=== PATIENT | female | born 1955 | race African-American/Black ===

== ENCOUNTER 2020-01-03 12:57 | Emergency (ER) | payer MEDICAID ==
[~2020-01-03] VITALS: Ht 160 cm; Wt 51.0 kg
[2020-01-03] MEDS ORDERED: QUET200T PO (13:32)
[2020-01-03] MEDS ORDERED: LEVO50TA8 PO (13:32)
[2020-01-03] MEDS ORDERED: VENL150T3 PO (13:34)
[2020-01-03 14:51] VITALS: BP 157/66
== END 2020-01-03 14:53 | disposition home or self-care (01) ==
LOC: ER 12:57
DX: Z03.818 Encounter for observation for suspected exposure to other biological agents ruled out (principal); D64.9 Anemia, unspecified; F31.9 Bipolar disorder, unspecified; E03.9 Hypothyroidism, unspecified; Z79.899 Other long term (current) drug therapy
CPT/HCPCS: 99283; U0003

== ENCOUNTER → 2020-01-07 | Day surgery (SDC) | payer MEDICAID ==
[~2020-01-07] VITALS: Ht 160 cm; Wt 52.2 kg
[~2020-01-07] MED LIST: BALANCED SALT IRRIG SOLN COMB1 500ML OP ONE; CYCLOPENTOLATE HCL 1% OPHTH DROPS 2ML RIGHTEYE SCH; HYALURONATE SODIUM 10 MG/ML 0.55ML SYRINGE IO ONE; HYDROMORPHONE HCL/PF 2MG/ML CPJ IV PRN; LABETALOL 5MG/ML SYR 20 MG/4 ML SYRINGE IV PRN; LACTATED RINGERS 1,000 ML IV SCH; LEVO50TA8 PO; MEPERIDINE HCL/PF 25MG/ML CPJ IV PRN; ONDANSETRON HCL 4MG/2ML INJ IV PRN; PHENYLEPHRINE HCL 10% OPHTH DROPS 5ML RIGHTEYE SCH; QUET200T PO; TROPICAMIDE 1% OPHTH DROPS 15ML RIGHTEYE SCH; VENL150T3 PO
== END | disposition home or self-care (01) ==
LOC: OR 11:32
PROVIDERS: ATTEND Ophthalmology
DX: H25.89 Other age-related cataract (principal); E03.9 Hypothyroidism, unspecified; F31.9 Bipolar disorder, unspecified; N18.9 Chronic kidney disease, unspecified; F17.210 Nicotine dependence, cigarettes, uncomplicated; Z79.899 Other long term (current) drug therapy; Z98.890 Other specified postprocedural states
CPT/HCPCS: 66984; J3490; V2632